=== PATIENT | male | born 2000 | race Caucasian/White ===

== ENCOUNTER 2021-10-06 20:37 | Emergency (ER) | payer SELFPAY ==
[~2021-10-06] VITALS: Ht 185.4 cm; Wt 107.0 kg
--- NOTE | 2021-10-06 21:04 | PHYS DOC ---
General Adult EDM: Chief Complaint: SUICIDAL IDEATION HPI: HPI: 20-year-old male presents with suicidal and homicidal ideation. Patient states that he would like to kill himself with a gun. He says that he has access to a gun. He was brought here by EMS who was called after the advertising sales consultant's department dealt with the patient. Patient is angry at his mother and brother and states wanting to hurt them. The police are already involved. Patient admits to smoking marijuana today. He does other drugs such as LSD but did not do any today. The patient has not made suicide attempts himself but he has tried to convince other people to kill him in the past. He has no other medical complaints at this time. (ISAURA BELTRÁN DO) Review of Systems: Review of Systems: Constitutional: Denies fever or chills Eyes: Denies change in visual acuity HENT: Denies nasal congestion or sore throat Respiratory: Denies cough or shortness of breath Cardiovascular: Denies chest pain or edema GI: Denies abdominal pain, nausea, vomiting, bloody stools or diarrhea : Denies dysuria Musculoskeletal: Denies back pain or joint pain Integument: Denies rash Neurologic: Denies headache, focal weakness or sensory changes Endocrine: Denies polyuria or polydipsia Lymphatic: Denies swollen glands Psychiatric: Suicidal, homicidal (ISAURA BELTRÁN DO) Physical Exam: PE: Constitutional: Well developed, well nourished, no acute distress, non-toxic appearance. [] HENT: Normocephalic, atraumatic, bilateral external ears normal, oropharynx moist, no oral exudates, nose normal. [] Eyes: PERRLA, EOMI, conjunctiva normal, no discharge. [] Neck: Normal range of motion, no tenderness, supple, no stridor. [] Cardiovascular:Heart rate regular rhythm, no murmur [] Lungs & Thorax: Bilateral breath sounds clear to auscultation [] Abdomen: Bowel sounds normal, soft, no tenderness, no masses, no pulsatile masses. [] Skin: Warm, dry, no erythema, no rash. [] Back: No tenderness, no CVA tenderness. [] Extremities: No tenderness, no cyanosis, no clubbing, ROM intact, no edema. [] Neurologic: Alert and oriented X 3, normal motor function, normal sensory function, no focal deficits noted. [] Psychologic: Affect flat, judgement impaired, mood depressed. [] (ISAURA BELTRÁN DO) EKG: EKG: [] (ISAURA BELTRÁN DO) EKG: Irregular rhythm 81 bpm, no axis deviation, normal intervals, no T wave inversion, no ST elevation or ST depression (CAROLANN CHONG DO) Radiology/Procedures: Radiology/Procedures: [] (ISAURA BELTRÁN DO) Heart Score: C/O Chest Pain: N/A Risk Factors: Risk Factors: DM, Current or recent (<one month) smoker, HTN, HLP, family history of CAD, obesity. Risk Scores: Score 0 - 3: 2.5% MACE over next 6 weeks - Discharge Home Score 4 - 6: 20.3% MACE over next 6 weeks - Admit for Clinical Observation Score 7 - 10: 72.7% MACE over next 6 weeks - Early Invasive Strategies (ISAURA BELTRÁN DO) C/O Chest Pain: No (NATHAN ROMERO DO) Course & Med Decision Making: Course & Med Decision Making Pertinent Labs and Imaging studies reviewed. (See chart for details) The patient is medically stable for behavioral health evaluation. Patient was evaluated by the behavioral health professional and found to benefit from inpatient treatment. The patient is willing. There are no facilities with available beds at this time. There may be some new availability in the morning. The patient will remain in the emergency room until morning and the behavioral team can make additional inquiries for placement. The patient was signed out to the dayshift. [] (ISAURA BELTRÁN DO) Course & Med Decision Making I received signout at shift change by Dr. Beltrán. Patient presented with suicidal ideations and is voluntary for psych placement. Patient is medically cleared for inpatient psych. No acute events during my shift. Due to shift change patient was signed out to oncoming physician Dr. Bowman. (CAROLANN CHONG DO) Course & Med Decision Making See Dr. Beltrán and Dr. Chong chart for details of prior shift. Pt. talked again with PAT by alicia. Pt. requested meds to aid with his anxiety and for sleep. Give Ativan 2 and Doxepin 50. Pt. currently sleeping at 2345. Hrs. Still awaitilng placement. Endorsed to Dr. Romero at shift change. Still awaiting placement. (DARRYN BOWMAN MD) Course & Med Decision Making I received comprehensive signout from outgoing physician, unremarkable overnight with no acute events Patient stable throughout entirety of my ER visit. He was reevaluated again by behavioral health provider. Patient has been battling with SI his whole life, biggest concern was patient had access to firearm but mother confirmed that this has been removed from household and patient has no access to it anymore Joint decision among all for discharge to [facility] for continued outpatient behavioral health management which I feel is appropriate. (NATHAN ROMERO DO) Dragon Disclaimer: Dragon Disclaimer: This electronic medical record was generated, in whole or in part, using a voice recognition dictation system. (ISAURA BELTRÁN DO) Departure Departure: Impression: Primary Impression: Suicidal ideation Disposition: HOME / SELF CARE / HOMELESS ([facility]) Condition: STABLE Additional Instructions: As discussed prior to ER departure, your vitals and physical exam incomprehensive work-up were nonconcerning for any emergent or surgical issues You were evaluated by our mobile behavioral health team and joint decision was made among all to discharge you with plans for admission to [facility] If any concerning signs symptoms or thoughts of self-harm or harming others arise, please do not hesitate to come back for repeat evaluation. You are provided a copy of the safety plan which you should adhere to on ER departure ISAURA BELTRÁN DO Oct 06, 2021 21:04 CAROLANN CHONG DO Oct 07, 2021 09:50 DARRYN BOWMAN MD Oct 07, 2021 23:46 NATHAN ROMERO DO Oct 08, 2021 10:09
[2021-10-06 21:41] LABS: BASO # 0.1 x10^3/uL (0.0-0.2); BASO % 1 % (0-3); EOS % 0 % (0-3); HEMATOCRIT 43.5 % (39.0-53.0); HEMOGLOBIN 14.8 g/dL (13.0-17.5); LYMPH # 2.2 x10^3/uL (1.0-4.8); LYMPH % 16 % (24-48); MEAN CORPUSCULAR HEMOGLOBIN 31 pg (25-35); MEAN CORPUSCULAR HGB CONC 34 g/dL (31-37); MEAN CORPUSCULAR VOLUME 91 fL (79-100); MONO % 7 % (0-9); NEUT # 10.3 x10^3uL (1.8-7.7); NEUT % 76 % (31-73); PLATELET COUNT 329 x10^3/uL (140-400); RED BLOOD COUNT 4.81 x10^6/uL (4.30-5.70); WHITE BLOOD COUNT 13.5 x10^3/uL (4.0-11.0)
[2021-10-06] MEDS ORDERED: IV NORMAL SALINE 1,000ML 1,000 ML IV ONE (21:45)
[2021-10-06 21:49] LABS: CALCIUM 9.4 mg/dL (8.5-10.1); CREATININE 1.2 mg/dL (0.7-1.3); GFR 77.2; POTASSIUM 3.7 mmol/L (3.5-5.1)
[2021-10-06 21:56] LABS: ALBUMIN 4.6 g/dL (3.4-5.0); ALBUMIN/GLOBULIN RATIO 1.4 (1.0-1.7); TOTAL BILIRUBIN 0.6 mg/dL (0.2-1.0)
[2021-10-06 23:03] LABS: AMPHETAMINE/METHAMPHETAMINE NEG (NEG); BARBITURATES NEG (NEG); BENZODIAZEPINES NEG (NEG); CANNABINOIDS POS (NEG); COCAINE NEG (NEG); METHADONE NEG (NEG); OPIATES NEG (NEG); PHENCYCLIDINE NEG (NEG)
[2021-10-06 23:06] LABS: BACTERIA,URINE 0 /HPF (0-FEW); BILIRUBIN,URINE SMALL (NEG); CLARITY,URINE CLEAR; COLOR,URINE YELLOW; GLUCOSE,URINE NEG (NEG); NITRITE,URINE NEG (NEG); RBC,URINE 0 /HPF (0-2); WBC,URINE 0 /HPF (0-4)
--- NOTE | 2021-10-07 11:02 | EKG ---
[address] [address] Test Date: 2021-10-07 Test Time: 10:04:16 Pat Name: PEARL MONSON Department: Room: Gender: M School Superintendent: ADONIS : [id number] Requested By: CAROLANN CHONG Order Number: [id number] Reading MD: Ever Echeverria Measurements Intervals [place] Rate: 81 P: [place]: QRS: 59 QRSD: 96 T: 54 QT: 354 QTc: 412 Interpretive Statements SINUS RHYTHM Electronically Signed On 10-08-2021 14:59:53 [employer]ILLA MAKER by Ever Echeverria
[2021-10-07 21:49] VITALS: BP 150/94
[2021-10-07] MEDS ORDERED: LORazepam 1 MG TABLET PO ONE (22:30)
[2021-10-08] MEDS ORDERED: DOXEPIN HCL 25 MG CAPSULE PO SCH (22:30)
== END 2021-10-08 13:52 | disposition home or self-care (01) ==
LOC: ER 20:37
DX: R45.851 Suicidal ideations (principal); R45.850 Homicidal ideations; Z20.822 Contact with and (suspected) exposure to COVID-19
CPT/HCPCS: 80053; 80307; 81001; 85025; 87426; 96360; 99285; J7030; U0003